=== PATIENT | female | born 1935 | race Hispanic/Latino ===

== ENCOUNTER 2019-03-08 14:42 | Emergency (ER) | payer MEDICARE, OTHER ==
[~2019-03-08] VITALS: Ht 157.5 cm; Wt 71.9 kg
--- OUTSIDE RECORDS SUMMARY | 2019-03-08 14:44 | XMS REPORT ---
[facility] Address Unknown Phone Unavailable Care Team Providers Care [employer] Buffer Name Role Phone Unavailable Unavailable Payers Payer Name Policy Type Policy Number Effective Date Expiration Date Problems This patient has no known problems. Allergies, Adverse Reactions, Alerts Allergy Name Allergy Type Status Severity Reaction(s) Onset Date Inactive Date Treating Clinician Comments No Known Allergies DA Active U 2012-04-14 00:00:00 Medications This patient has no known medications.
== END 2019-03-08 15:15 | disposition home or self-care (01) ==
LOC: FSED 14:42
DX: R04.0 Epistaxis (principal); J30.2 Other seasonal allergic rhinitis; I10 Essential (primary) hypertension
CPT/HCPCS: 99283